=== PATIENT | male | born 1975 | race American Indian/Alaskan Native ===

== ENCOUNTER 2016-10-12 19:52 | Emergency (ER) | payer BC ==
[2016-10-12 20:05] VITALS: BP 132/83; PULSE 90; RESP 18; TEMP 97.9; O2SAT 98
[2016-10-12] MEDS ORDERED: Albuterol-Ipratrop 3 mg / 0.5 (3 ml) UD INH STA (20:28)
--- NOTE | 2016-10-12 20:36 | ED PDOC ---
HPI: CCC, URI, Sore Throat Time Seen by Provider: 10/12/16 20:18 Chief Complaint (Nursing): Cough, Cold, Congestion Chief Complaint (Provider): Cough History Per: Patient History/Exam Limitations: no limitations Have you had recent travel within the past 21 days to any of the following countries: [place], [place], [place] or [place]?: No Onset/Duration Of Symptoms: Days (7) Current Symptoms Are (Timing): Still Present Sick Contacts (Context): None Associated Symptoms: Cough Additional History Per: Patient Additional Complaint(s): The pt is a 41yo male with PMHx of thyroid illness, presents to the ED for evaluation of evaluation of a dry cough present for the past week. Pt reports he has had a dry cough for the past week and has been unable to sleep at night. Denies any fever, chills, known sick contacts. No other medical complaints Past Medical History Reviewed: Historical Data, Nursing Documentation, Vital Signs Vital Signs: Last Vital Signs Temp 97.9 F 10/12/16 20:03 Pulse 90 10/12/16 20:03 Resp 18 10/12/16 20:03 BP 132/83 10/12/16 20:03 Pulse Ox 98 10/12/16 20:41 - Medical History PMH: Hyperthyroidism - Surgical History Surgical History: No Surg Hx - Family History Family History: States: Unknown Family Hx - Home Medications Home Medications: Ambulatory Orders Medication Instructions Recorded Albuterol HFA [Ventolin HFA 90 2 puff IH [id number] PRN #1 in 10/12/16 mcg/actuation (8 g)] Promethazine/Codeine 5 ml PO Q12 PRN #100 ml 10/12/16 [Codeine/Promethazine 10 MG/5 Ml-6.25 MG/5 Ml] - Allergies Allergies/Adverse Reactions: Allergies Allergy/AdvReac Type Severity Reaction Status Date / Time No Known Allergies Allergy Verified 10/12/16 20:24 Review of Systems ROS Statement: Except As Marked, All Systems Reviewed And Found Negative Constitutional: Negative for: Fever, Chills Respiratory: Positive for: Cough. Negative for: Sputum Physical Exam - Reviewed Nursing Documentation Reviewed: Yes Vital Signs Reviewed: Yes - Physical Exam Appears: Positive for: Well, Non-toxic, No Acute Distress Head Exam: Positive for: ATRAUMATIC, NORMAL INSPECTION, NORMOCEPHALIC Skin: Positive for: Normal Color Eye Exam: Positive for: Normal appearance ENT: Positive for: Normal ENT Inspection Neck: Positive for: Normal, Supple Cardiovascular/Chest: Positive for: Regular Rate, Rhythm Respiratory: Positive for: Normal Breath Sounds, Other (cough noted with deep inspiration). Negative for: Wheezing, Respiratory Distress Neurologic/Psych: Positive for: Alert, Oriented - ECG O2 Sat by Pulse Oximetry: 98 (RA) Pulse Ox Interpretation: Normal - Progress ED Course And Treament: CXR: NAD DUONEB X 1 DOSE WITH IMPROVEMENT OF SYMPTOMS SEEN Medical Decision Making Medical Decision Making: Time: 2024 Impression: URI Plan: -- CXR -- Duoneb -- Reassess Scribe Attestation: Documented by Machelle Collazo acting as a scribe for RADHA White Provider Attestation: All medical record entries made by the Scribe were at my direction and personally dictated by me. I have reviewed the chart and agree that the record accurately reflects my personal performance of the history, physical exam, medical decision making, and the department course for this patient. I have also personally directed, reviewed, and agree with the discharge instructions and disposition. Disposition - Clinical Impression Clinical Impression: Cough - Patient ED Disposition Is Patient to be Admitted: No - Disposition Disposition: Routine/Home Disposition Time: 21:13 Condition: FAIR Prescriptions: Albuterol HFA [Ventolin HFA 90 mcg/actuation (8 g)] 2 puff IH [id number] PRN #1 in PRN Reason: Cough Promethazine/Codeine [Codeine/Promethazine 10 MG/5 Ml-6.25 MG/5 Ml] 5 ml PO Q12 PRN #100 ml PRN Reason: Cough Instructions: Acute Bronchitis (ED) Forms: [facility] ED School/Work Excuse
[2016-10-12] MEDS ORDERED: Albuterol-Ipratrop 3 mg / 0.5 (3 ml) UD ONE (20:58)
--- NOTE | 2016-10-13 11:00 | RAD ---
HISTORY: Cough COMPARISON: No prior. TECHNIQUE: Chest PA and lateral FINDINGS: LUNGS: The lungs are well inflated and clear. PLEURA: No significant pleural effusion identified. No pneumothorax apparent. CARDIOVASCULAR: Normal. OSSEOUS STRUCTURES: No significant abnormalities. VISUALIZED UPPER ABDOMEN: Normal. OTHER FINDINGS: None. IMPRESSION: No active pulmonary disease.
== END 2016-10-12 22:14 | disposition home or self-care (01) ==
LOC: H.ER 19:52 → MERGE 19:52 → H.ER 22:14
DX: R05 Cough (principal); E05.90 Thyrotoxicosis, unspecified without thyrotoxic crisis or storm

== ENCOUNTER 2017-05-22 14:34 | Emergency (ER) | payer BC, MEDICAID ==
[2017-05-22 14:52] VITALS: BP 137/79; PULSE 84; RESP 16; TEMP 98.7; O2SAT 98
[2017-05-22] MEDS ORDERED: Tmp-Smz 800 mg-160 mg DS Tab PO STA (17:19)
[2017-05-22] MEDS ORDERED: Tmp-Smz 800 mg-160 mg DS Tab ONE (17:26)
--- NOTE | 2017-05-22 18:30 | ED PDOC ---
HPI: Skin/Bite Injury Time Seen by Provider: 05/22/17 16:20 Chief Complaint (Nursing): Abnormal Skin Integrity Chief Complaint (Provider): Left knee abscess History Per: Patient History/Exam Limitations: no limitations Onset/Duration Of Symptoms: Days (x2 weeks ago) Current Symptoms Are (Timing): Still Present Location Of Injury: Left: Knee Quality Of Symptoms: Swollen Additional Complaint(s): Ernesto Upton is a 42 year old male, with no significant past medical history, who presents to the emergency department complaining of an abscess to the left knee that became enlarged and swollen onset x2 weeks ago. Patient reports the abscess ruptured with discharge, but there is a new small abscess developing in the same knee. Patient's tetanus is not up to date and denies taking any antibiotics. He denies any fever, chills, trauma or injury. No further medical complaints. PMD: None provided. Past Medical History Reviewed: Historical Data, Nursing Documentation, Vital Signs Vital Signs: Last Vital Signs Temp 98.7 F 05/22/17 14:48 Pulse 84 05/22/17 14:48 Resp 16 05/22/17 14:48 BP 137/79 05/22/17 14:48 Pulse Ox 98 05/22/17 18:39 - Medical History PMH: Hyperthyroidism - Surgical History Surgical History: No Surg Hx - Family History Family History: States: Unknown Family Hx - Social History Current smoker - smoking cessation education provided: No Alcohol: Social Drugs: Other (K-2) - Immunization History Hx Tetanus Toxoid Vaccination: No Hx Influenza Vaccination: Yes Hx Pneumococcal Vaccination: No - Home Medications Home Medications: Ambulatory Orders Medication Instructions Recorded Famotidine [Pepcid] 20 mg PO HS #20 tab 07/13/15 Ibuprofen [Motrin] 600 mg PO Q6H PRN #20 tab 07/13/15 methIMAzole [Tapazole] 2 tab PO DAILY 07/13/15 Albuterol HFA [Ventolin HFA 90 2 puff IH [id number] PRN #1 in 10/12/16 mcg/actuation (8 g)] Promethazine/Codeine 5 ml PO Q12 PRN #100 ml 10/12/16 [Codeine/Promethazine 10 MG/5 Ml-6.25 MG/5 Ml] Cephalexin [Keflex] 500 mg PO Q6 #28 capsule 05/22/17 Sulfamethoxazole/Trimethoprim 2 tab PO BID #28 tab 05/22/17 [Bactrim DS 800 mg-160 mg] - Allergies Allergies/Adverse Reactions: Allergies Allergy/AdvReac Type Severity Reaction Status Date / Time No Known Allergies Allergy Unverified 07/13/15 14:17 Review of Systems ROS Statement: Except As Marked, All Systems Reviewed And Found Negative Constitutional: Negative for: Fever, Chills, Other (trauma) Musculoskeletal: Positive for: Leg Pain (left knee abscess ) Physical Exam - Reviewed Nursing Documentation Reviewed: Yes Vital Signs Reviewed: Yes - Physical Exam Comments: GENERAL APPEARANCE: Patient is awake, alert, oriented x 3, in no distress. SKIN: warm and dry, +1x1 cm erythematous, indurated, nontender, non fluctuant abscess over the anterior knee with no surrounding cellulitis. PULMONARY: lungs clear, no rhonchi, no wheezing. CARDIAC: regular rate and rhythm, no murmur, no gallop. ABDOMEN: soft, nontender. LEFT KNEE: no deformity, full range of motion, no tenderness. Good distal pulses. - ECG O2 Sat by Pulse Oximetry: 98 (RA) Pulse Ox Interpretation: Normal Medical Decision Making Medical Decision Making: Initial Impression: Left knee abscess Initial Plan: --Adacel 0.5 ml IM --Bactrim DS Tab 2 tab PO --Keflex 500 mg PO --reevaluation 18:15 --Diagnosed with abscess with cellulitis. Advised to follow up with outpatient clinic in 1-2 days without fail. Advised to take medication as prescribed and to apply warm compresses to area. Return to the emergency room at any time for any new or worsening symptoms. Patient states he fully agrees with and understands discharge instructions. States that he agrees with the plan and disposition. Verbalized and repeated discharge instructions and plan. I have given the patient opportunity to ask any additional questions. ~ Scribe Attestation: Documented by Mauro Diaz, acting as a scribe for Carina Harrington PA-C. Provider Scribe Attestation: All medical record entries made by the Scribe were at my direction and personally dictated by me. I have reviewed the chart and agree that the record accurately reflects my personal performance of the history, physical exam, medical decision making, and the department course for this patient. I have also personally directed, reviewed, and agree with the discharge instructions and disposition. Disposition - Clinical Impression Clinical Impression: Abscess or cellulitis of knee - Patient ED Disposition Is Patient to be Admitted: No Counseled Patient/Family Regarding: Diagnosis, Need For Followup, Rx Given - Disposition Referrals: [facility] [Outside] Disposition: Routine/Home Disposition Time: 17:00 Condition: STABLE Additional Instructions: Thank you for letting us take care of you today. You were treated for abscess/ cellulitis L knee. The emergency medical care you received today was directed at your acute symptoms. If you were prescribed any medication, please fill it and take as directed. It may take several days for your symptoms to resolve. Return to the Emergency Department if your symptoms worsen, do not improve, or if you have any other problems. Please contact your doctor in 2 days for re-evaluation and follow up / or call one of the physicians/clinics you have been referred to that are listed on the Patient Visit Information form that is included in your discharge packet. Bring any paperwork you were given at discharge with you along with any medications you are taking to your follow up visit. Our treatment cannot replace ongoing medical care by a primary care provider (PCP) outside of the emergency department. Thank you for allowing the [facility] team to be part of your care today. 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
== END 2017-05-22 17:50 | disposition home or self-care (01) ==
LOC: H.ER 14:34
DX: L02.416 Cutaneous abscess of left lower limb (principal); E05.90 Thyrotoxicosis, unspecified without thyrotoxic crisis or storm